=== PATIENT | male | born 1995 | race Two or more races ===

== ENCOUNTER 2025-05-20 04:36 | Emergency (ER) | payer OTHER ==
[~2025-05-20] VITALS: Ht 167.6 cm; Wt 76.9 kg
--- NOTE | 2025-05-20 04:52 | ED.PDOC ---
General HPI Comments 29-YEAR-OLD MALE PATIENT PRESENTS TO THE ER WITH C/C OF LEFT FLANK PAIN AND BACK PAIN THAT RADIATES TO LEFT ABDOMINAL AREA. STARTED A WEEK AGO REPORTS N/V, PAIN WITH URINATION AND DIFFICULTY URINATING. CHEST PAIN, DIARRHEA, FEVER, CHILLS, GROSS BLOOD IN THE URINE. Chief Complaint: Flank Pain Time Seen by MD: 04:50 Reviewed notes: Nurses Notes, Medications, Allergies Allergies: Coded Allergies: NO KNOWN ALLERGIES (Unverified , 05/20/25) Information Source: Patient Mode of Arrival: Ambulatory All Other Systems: Reviewed and Negative (SEE HPI) Physical Exam General Appearance: No Apparent Distress, Normal HEENT: Pharynx Normal Neck: Full Range of Motion, Non-Tender Respiratory: Lungs Clear, No Respiratory Distress, Normal Breath Sounds Cardiovascular: No Edema, No JVD, No Murmur, No Gallop, Normal Peripheral Pulses, Regular Rate/Rhythm Breast Exam: Deferred Gastrointestinal: No Organomegaly, No Pulsatile Mass, Normal Bowel Sounds, Soft, Suprapubic (TENDERNESS ON PALPATION ) Genitalia: Deferred Pelvic: Deferred Rectal: Deferred Extremities: Normal range of motion, No pedal edema Musculoskeletal : Apperance: Normal Neurologic: Alert, No Motor Deficits, Normal Affect, Normal Mood, No Sensory Deficits Cerebellar Function: Normal Reflexes: NOT DONE Skin: Dry, Normal Color, Warm Lymphatic: No Adenopathy Was a procedure done? Was a procedure done?: No Differential Diagnosis Kidney stone (Female): Urinary obstruction, Urolithiasis Urinary Problem (Female): Pyelonephritis, UTI X-Ray, Labs, Meds, VS Vital Signs Date Time Temp Pulse Resp B/P (MAP) Pulse Ox O2 Delivery O2 Flow Rate FiO2 05/20/25 05:29 98.4 59 19 126/75 (92) 98 98.4 05/20/25 05:29 59 19 98 Room Air* 0 21 05/20/25 04:38 97.9 57 20 135/71 99 97.9 Lab Test 05/20/25 05:01 Range/Units White Blood Count 3.3 L 4.4-10.8 10^3/uL Red Blood Count 4.79 4.5-5.90 10^6/uL Hemoglobin 15.5 13.5-17.5 g/dL Hematocrit 44.9 41.0-53.0 % Mean Corpuscular Volume 93.8 80.0-100.0 fL Mean Corpuscular Hemoglobin 32.4 H 28.0-32.0 pg Mean Corpuscular Hemoglobin Concent 34.5 32.0-36.0 g/dL Red Cell Distribution Width 12.9 11.8-14.3 % Platelet Count 288 140-450 10^3/uL Mean Platelet Volume 8.4 6.9-10.8 fL Neutrophils (%) (Auto) 53.0 37.0-80.0 % Lymphocytes (%) (Auto) 32.3 10.0-50.0 % Monocytes (%) (Auto) 10.0 0.0-12.0 % Eosinophils (%) (Auto) 4.0 0.0-7.0 % Basophils (%) (Auto) 0.7 0.0-2.0 % Neutrophils # (Auto) 1.8 1.6-8.6 10 ^3/uL Lymphocytes # (Auto) 1.1 0.4-5.4 10 ^3/uL Monocytes # (Auto) 0.3 0-1.3 10 ^3/uL Eosinophils # (Auto) 0.1 0-0.8 10 ^3/uL Basophils # (Auto) 0 0-0.2 10 ^3/uL Nucleated Red Blood Cells 0.1 % Sodium Level 139 136-145 mmol/L Potassium Level 4.3 3.5-5.1 mmol/L Chloride Level 105 98-107 mmol/L Carbon Dioxide Level 27 20-31 mmol/L Anion Gap 7 5-15 Blood Urea Nitrogen 8 L 9-23 mg/dL Creatinine 1.10 0.700-1.30 mg/dL Glomerular Filtration Rate Calc 93 >90 mL/min BUN/Creatinine Ratio 7.3 L 10.0-20.0 Serum Glucose 96 74-106 mg/dL Calcium Level 9.2 8.7-10.4 mg/dL Total Bilirubin 0.7 0.2-1.0 mg/dL Aspartate Amino Transferase (AST) 25 13-40 U/L Alanine Aminotransferase (ALT) 43 H 7-40 U/L Alkaline Phosphatase 72 46-116 U/L Total Protein 7.6 5.7-8.2 g/dL Albumin 4.5 3.2-4.8 g/dL Lipase 36 12-53 U/L X-Ray, Labs, Meds, VS Comment IMPRESSION: 1. A 3 mm stone at the left UVJ is associated with mild obstructive uropathy. Patient given Toradol 60 mg , tamsulosin 0.4 mg, Zofran four mg IV push, and NS 1000 mL bolus. Noted 3 mm stone left UVJ with mild obstructive uropathy. CBC and CMP within normal limits. Manage patient's pain start on tamsulosin likely be discharged MANAGED AT HOME WITH PAIN MEDICATIONS AND TAMSULOSIN PENDING UA Time of 1ST Reevaluation: 04:51 Reevaluation 1ST: Unchanged Patient Education/Counseling: Diagnosis, Treatment, Prognosis, Need For Follow Up SEPSIS Sepsis Screen Date sepsis recognized/suspect: May 20, 2025 Time Sepsis recognized/suspect: 439 Recent Procedure: No On Antibiotic Therapy: No Respiratory Rate >20: No Heart Rate >90: No Temp<36 C (96.8 F) or >38.3 C: No SBP <90 or MAP <65 mmHG: No New Acute Mental Status Change: No Is the patient on CPAP, BIPAP,: No Physician Orders Urinalysis (05/20/25 04:52) Ct Ab Pel Wo Con-No Oral Or Iv (05/20/25 04:52) Sodium Chloride 0.9% (05/20/25 05:00) Vital Signs Date Time Temp Pulse Resp B/P (MAP) Pulse Ox O2 Delivery O2 Flow Rate FiO2 05/20/25 05:29 98.4 59 19 126/75 (92) 98 98.4 05/20/25 05:29 59 19 98 Room Air* 0 21 05/20/25 04:38 97.9 57 20 135/71 99 97.9 Laboratory Tests Test 05/20/25 05:01 White Blood Count 3.3 10^3/uL (4.4-10.8) L Departure 1 Departure Impression: Primary Impression: Calculus of ureterovesical junction (UVJ) Disposition: 01 HOME / SELF CARE / HOMELESS Condition: Stable e-Prescriptions Ibuprofen (Ibuprofen) 800 Mg Tab 800 MG PO Q8HP PRN for 10 Days, #30 TAB Prov: ODALIS ARCOS 05/20/25 Tamsulosin Hcl (Tamsulosin Hcl) 0.4 Mg Cap 1 CAP PO DAILY for 10 Days, #10 CAP Prov: ODALIS ARCOS 8/25/25 Discharged With: Self Critical Care Note Critical Care Time?: No Stability Stability form required: 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
[2025-05-20] MEDS: SODIUM CHLORIDE 0.9% 1,000 ML IV ONE (05:00)
--- NOTE | 2025-05-20 05:15 | DVH ---
Exam: CT CT AB PEL WO CON-NO ORAL OR IV History: flank pain Comparison Study: None Technique: Multidetector spiral CT of the abdomen was performed from lung bases to pubic symphysis. I maging was performed without IV contrast. Axial, coronal and sagittal multiplanar reformats were obta ined from the axial data set by the technologist. Radiation Dose : 1. Abdomen/Pelvis: CTDIvol 7.06 mGy, DLP 7.06 mGy*cm. Findings: Evaluation of solid organs is limited due to lack of intravenous contrast use. Lower Chest: No acute findings. Liver: Unremarkable. Gallbladder and Biliary Tree: Unremarkable Pancreas: Unremarkable. Spleen: Unremarkable. Adrenal Glands: Unremarkable. Kidneys/Ureters: No urinary stone or obstruction. 3 mm stone at the left ureterovesicular junction wi th mild hydroureteronephrosis. No other urinary stone. Unremarkable right kidney and ureter. Bladder: Decompressed with left UVJ stone as above. Pelvic Organs: Unremarkable as visualized. Bowel: Normal caliber without wall thickening. Normal appendix. Vasculature: Unremarkable. Lymphadenopathy: No obvious adenopathy. Peritoneum: No ascites, free air, or fluid collection. Abdominal Wall: No significant hernia. Musculoskeletal: No acute findings. Transitional lumbosacral anatomy. IMPRESSION: 1. A 3 mm stone at the left UVJ is associated with mild obstructive uropathy. Radiation optimization: All CT scans at this facility use at least one of these dose optimization rachael hniques: automated exposure control mA and/or kV adjustment per patient size (includes targeted exam s where dose is matched to clinical indication) or iterative reconstruction.
[2025-05-20 05:19] LABS: Hematocrit 44.9 % (41.0-53.0); Hemoglobin 15.5 g/dL (13.5-17.5); Mean Corpuscular Hemoglobin 32.4 pg (28.0-32.0); Mean Corpuscular Volume 93.8 fL (80.0-100.0); Nucleated Red Blood Cells % 0.1 %
[2025-05-20 05:29] VITALS: BP 126/75; PULSE 59; RESP 19; TEMP 98.4; O2SAT 98
[2025-05-20 05:36] LABS: Alkaline Phosphatase 72 U/L (46-116); Anion Gap 7 (5-15); BUN/Creatinine Ratio 7.3 (10.0-20.0); Calcium 9.2 mg/dL (8.7-10.4); Carbon Dioxide 27 mmol/L (20-31); Chloride 105 mmol/L (98-107); Glucose 96 mg/dL (74-106); Lipase 36 U/L (12-53); Potassium 4.3 mmol/L (3.5-5.1); Sodium 139 mmol/L (136-145); Total Protein 7.6 g/dL (5.7-8.2)
[2025-05-20 05:37] LABS: Albumin 4.5 g/dL (3.2-4.8); Bilirubin, Total 0.7 mg/dL (0.2-1.0)
[2025-05-20 05:38] LABS: Alanine Aminotransferase 43 U/L (7-40); Blood Urea Nitrogen 8 mg/dL (9-23)
[2025-05-20] MEDS ORDERED: IBUP-1456 PO (05:54)
[2025-05-20] MEDS ORDERED: TAMS0.4C39 PO (05:54)
[2025-05-20] MEDS: TAMSULOSIN HYDROCHLORIDE 0.4 MG CAP PO ONE (05:55)
[2025-05-20] MEDS: ONDANSETRON HCL 4 MG/2 ML VIAL IV ONE (05:55)
[2025-05-20] MEDS: KETOROLAC TROMETH 30 MG/ML 1ML VIAL IV ONE (05:55)
[2025-05-20 06:41] LABS: Urine Protein, UAD TRACE (Negative)
== END 2025-05-20 06:25 | disposition home or self-care (01) ==
LOC: ER 04:36
DX: N13.2 Hydronephrosis with renal and ureteral calculous obstruction (principal); R11.2 Nausea with vomiting, unspecified
CPT/HCPCS: 36415; 74176; 80053; 81001; 83690; 85025; 96361; 96374; 96375; 99285; J1885; J2405; J7030